=== PATIENT | female | born 1990 | race American Indian/Alaskan Native ===

== ENCOUNTER 2017-08-08 19:33 | Outpatient (CLI) | payer OTHER ==
[2017-08-08 20:28] VITALS: BP 107/71
[2017-08-08] MEDS ORDERED: LACTATED RINGERS 1,000 ML IV ONE (20:29)
[2017-08-08 21:04] LABS: Bacteria,Urine 1+ /HPF (Negative); Mucus,Urine 1+ /HPF
[2017-08-08 21:12] LABS: WBC,Urine > 182.0 /HPF (0.0-6.0)
[2017-08-08 21:37] LABS: Bilirubin,Urine NEG (Negative); Blood,Urine LG (Negative); Ketones,Urine NEG (Negative); Leukocyte Esterase,Urine LG (Negative); Nitrite,Urine NEG (Negative)
== END 2017-08-08 22:02 | disposition home or self-care (01) ==
LOC: TRG 19:33
PROVIDERS: ATTEND Obstetrics & Gynecology
DX: O26.893 Other specified pregnancy related conditions, third trimester (principal); R10.9 Unspecified abdominal pain; Z3A.32 32 weeks gestation of pregnancy
CPT/HCPCS: 59025; 81001; 96360; J7120

== ENCOUNTER 2020-10-05 15:56 | Emergency (ER) | payer SELFPAY ==
[2020-10-05 18:17] LABS: Bilirubin,Urine NEG (Negative); Blood,Urine SM (Negative); Color,Urine Yellow (Yellow); Mucus,Urine FEW /HPF; Protein,Urine <15 mg/dL mg/dL (Negative)
[2020-10-05 18:22] LABS: HCG Qualitative,Urine Negative (Negative)
--- NOTE | 2020-10-05 18:43 | Event Note ---
ED Screening Note Date of service: 10/05/20 Time: 18:41 ED Screening Note: 29-year-old female presents to the ER today complaining that she has been bleeding for about a month and a half. She states that initially was spotting but it got a little bit heavier. She states that is now more for light bleeding. She states that it has been intermittent. She states that the most part she is used when she did bleed was about 5/day. She states that her last normal period was last week. She continues to have breakthrough bleeding. She did have dysuria when the symptoms first started but this has since stopped. She reports intermittent low abdominal cramping for the past 3 to 4 days. She d enies any vaginal discharge. She reports a history of anemia, but does not currently take her iron supplements. She states that she was going to see a [employer] for her symptoms, but her Medicaid got "cut" recently. This initial assessment/diagnostic orders/clinical plan/treatment(s) is/are subject to change based on patients health status, clinical progression and re- assessment by fellow clinical providers in the ED. Further treatment and workup at subsequent clinical providers discretion. Patient/guardian urged not to elope from the ED as their condition may be serious if not clinically assessed and managed. Initial orders include: cbc, bmp
[2020-10-05 19:02] LABS: Basophils # (Auto) 0.1 K/mm3 (0.0-0.1); Basophils % (Auto) 1.2 % (0.0-1.8); Eosinophils % (Auto) 0.6 % (0.0-4.3); Hematocrit 38.3 % (30.3-42.9); Hemoglobin 13.6 gm/dl (10.1-14.3); Lymphocytes # (Auto) 2.1 K/mm3 (1.2-5.4); Lymphocytes % (Auto) 40.2 % (13.4-35.0); Mean Corpuscular HGB Conc 36 % (30-34); Mean Corpuscular Volume 89 fl (79-97); Monocytes # (Auto) 0.3 K/mm3 (0.0-0.8); Monocytes % (Auto) 6.6 % (0.0-7.3); Platelet Count 269 K/mm3 (140-440); Red Blood Count 4.32 M/mm3 (3.65-5.03); Red Cell Distribution Width 13.5 % (13.2-15.2)
[2020-10-05 19:21] LABS: Blood Urea Nitrogen 11 mg/dL (7-17); Calcium 9.6 mg/dL (8.4-10.2); Hemolysis Index 12
[2020-10-05 19:22] LABS: BUN/Creatinine Ratio 18
== END 2020-10-05 18:47 | disposition left against medical advice (07) ==
LOC: ED 15:56
DX: N39.0 Urinary tract infection, site not specified (principal); Z53.21 Procedure and treatment not carried out due to patient leaving prior to being seen by health care provider
CPT/HCPCS: 36415; 80048; 81001; 81025; 85025